=== PATIENT | male | born 1940 | race Caucasian/White ===

== ENCOUNTER 2017-01-14 20:58 | Inpatient (IN) ==
[2017-01-14] MEDS ORDERED: ALBUTEROL/IPRATROPIUM 3 ML NEB RESP TX STA (21:25)
[2017-01-14] MEDS ORDERED: methylPREDNISolone SOD SUC 125 MG/2 ML VIAL IV STA (21:25)
[2017-01-14] MEDS ORDERED: LEVOFLOXACIN INJ 750 MG in PREMIX 1 EACH IV STA (21:25)
--- NOTE | 2017-01-14 21:34 | Emergency Department Note ---
Arrival - Arrival Chief Complaint: Shortness of Breath Stated Complaint: shortness of breath ED Nursing Triage Note: Patient to room via [facility]. Patient states for the last few days he has not "felt himself". EMS states that he is having trouble breathing. Patient states that he feels like he is going to pass out. He states he is a little dizzy. Mode of Arrival: Stretcher Limitations: No Limitations Source: Patient Time Seen by Provider: 01/14/17 21:25 - History of Present Illness HPI Narrative: This 76-year-old white male presents with 3 days of progressive dyspnea at rest and on exertion associated with increased wheeze and dry cough. The patient is a chronic COPD patient on home O2 followed by Dr. Peterson in [place] and is followed by Dr. Burch for atrial fibrillation. He denies chills, fever, purulence, nausea, vomiting, history of congestive failure, or chest pain. Currently in bed at rest he is in no acute distress. Onset (ago): day(s) (Patient presents 3 days post onset of symptoms) Allergies/Adverse Reactions: Allergies Allergy/AdvReac Type Severity Reaction Status Date / Time No Known Allergies Allergy Unverified 01/14/17 21:07 Home Medications: Home Medications Medication Instructions Recorded Confirmed Type Carvedilol [Coreg] 3.125 mg PO BID 04/23/15 04/23/15 History Citalopram [CeleXA] 20 mg PO DAILY 04/23/15 04/23/15 History Febuxostat [Uloric] 40 mg PO DAILY 04/23/15 04/23/15 History Fluticasone/Salmeterol 250-50 1 puff INH BID 04/23/15 04/23/15 History [Advair 250-50] Furosemide Tab [Lasix Tab] 20 mg PO BID DIURETIC 04/23/15 04/23/15 History Solifenacin [Vesicare] 5 mg PO DAILY 04/23/15 04/23/15 History Sotalol [Betapace] 80 mg PO BID 04/23/15 04/23/15 History Review of System - Review of System 12 point system: reviewed and no additional remarkable complaints except as stated - Review of System Constitutional: Present: as per HPI Respiratory: Present: as per HPI Cardiovascular: Present: as per HPI Gastrointestinal: Present: as per HPI Medical,Surgical,& Family Hx - Medical History Cardio: History of: Cardiac Dysrhythmia (A-fib), CHF, Hypertension Endocrine: History of: Diabetes Mellitus (NIDDM) Respiratory: History of: COPD, Obstructive Sleep Apnea 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 HEENT: Normocephalic. No trauma. Moist mucous membranes. EOMI. PERRLA. ENT NML NECK: Supple. No adenopathy. CARDIAC: Regular. No murmurs. Heart rate 63 CHEST: Scattered expiratory wheezes and rhonchi. No respiratory distress. O2 sat 88% ABDOMEN: Soft. Nontender. Active bowel sounds. EXTREMITIES: No trauma. Normal ROM. Trace pedal edema. SKIN: No diaphoresis. No rash. NEURO: Alert. Neuro intact no focal deficits. Vital Signs: Vital Signs Temperature 97.8 F 01/14/17 21:00 Pulse Rate 43 L 01/14/17 21:53 Respiratory Rate 20 01/14/17 21:57 Blood Pressure 153/141 01/14/17 21:53 O2 Sat by Pulse Oximetry 96 01/14/17 21:53 Course - Reevaluation(s) Reevaluation #1: Advised patient of pneumonia and need for hospitalization. - Consultations Consultation #1: Discussed with hospitalist service who will admit for further evaluation treatment. Results - Labs CBC & BMP: 01/14/17 21:03 01/14/17 21:03 Labs: I reviewed the laboratory noted the grossly normal results - Impressions EKG: Sinus rhythm at 63 with first-degree heart block and normal QRS duration. Prolonged QT interval with nonspecific ST changes. Occasional unifocal PVCs. No acute injury pattern noted. - Diagnostic Findings Procedure: Chest x-ray: image reviewed by me, report reviewed by me (Right lower lobe infiltrate) Disposition Clinical Impression: Right lower lobe pneumonia Case discussed with: patient, patient's family Disposition: Still a Patient Condition: Stable Time of Disposition: 22:59
[2017-01-14 21:37] LABS: Basophils # 0.1 10*3/uL (0.0-0.2); Eosinophils # 0.1 10*3/uL (0.0-0.87); Hematocrit 47.5 VOL% (42.0-52.0); Hemoglobin 15.1 GM/DL (14.0-18.0); Immature Granulocytes % 0.1 %; Immature Granulocytes Absolute 0.01 #; Lymphocytes # 1.7 10*3/uL (1.4-4.0); Lymphocytes % 20.7 % (21.2-54.2); Mean Corpuscular HGB Conc 31.8 GM/DL (32-36); Mean Corpuscular Hemoglobin 31 PG (27-34); Mean Corpuscular Volume 96.7 FL (87-102); Mean Platelet Volume 11.6 FL (9.6-12.0); Monocytes # 0.9 10*3/uL (0.11-0.8); Monocytes % 10.4 % (1.7-12.7); Neutrophils # 5.6 10*3/uL (1.4-7.4); Neutrophils % 66.8 % (38.7-73.9); Platelet Count 172 T/CUMM (130-400); Red Blood Count 4.91 MC/CUMM (3.8-5.5); Red Cell Distribution Width 13.9 % (9.3-17.3); White Blood Count 8.4 T/CUMM (4-12)
[2017-01-14] MEDS ORDERED: TERBUTALINE 1 MG/1 ML VIAL SUBCUT ONE (21:38)
[2017-01-14] MEDS ORDERED: LEVOFLOXACIN INJ 150 ML IV ONE (21:38)
[2017-01-14] MEDS ORDERED: methylPREDNISolone SOD SUC 125 MG/2 ML VIAL ONE (21:38)
[2017-01-14 21:45] LABS: PT Patient Result 10.5 SECS; Partial Thromboplastin Time 28.7 SECS (0-40)
[2017-01-14] MEDS: TERBUTALINE 1 MG/1 ML VIAL SUBCUT SCH ×2 (21:47→22:35)
[2017-01-14 21:53] LABS: Alanine Aminotransferase 25 U/L (16-61); Albumin 3.6 G/DL (3.4-5.0); Alkaline Phosphatase 101 U/L (45-117); Aspartate Amino Transferase 37 U/L (0-37); Blood Urea Nitrogen 15 MG/DL (7-18); Calcium 9.4 MG/DL (8.5-10.1); Glucose 111 MG/DL (74-106); Osmolality,Calculated 278.5 MOS/KG (273-304); Potassium 4.9 MMOL/L (3.5-5.1); Sodium 139 MMOL/L (136-145); Total Protein 7.2 G/DL (6.4-8.3); Troponin I Only < 0.015 NG/ML (0.00-0.045)
[2017-01-14 22:00] LABS: Apearance,Urine CLEAR (Clear); Bilirubin,Urine Negative (Negative); Blood, Urine Negative (Negative); Glucose,Urine (UA) Negative (Negative); Ketones,Urine Negative (Negative); Nitrite,Urine Negative (Negative); Protein,Urine Negative; RBC,Urine 1 /HPF (0-4); Squamous Epithelial Cell,Urine Occasional /HPF (0-10); Urine Color Yellow (Yellow); Urine Specific Gravity 1.009 (1.001-1.035); WBC,Urine <1 /HPF (0-6)
--- NOTE | 2017-01-14 22:30 | XRay Report ---
XR chest 1V portable Indication: Shortness of breath Comparison: Chest x-ray 04/23/2015 Technique: Portable AP chest was performed. Findings: The heart is stable in size compared to prior study. [id number] ectasia of the thoracic aorta as well as diffuse intimal calcification of the aorta is stable. Pulmonary vasculature demonstrates no specific abnormality. Hilar structures demonstrate fairly symmetric appearance. The lungs suggest air space opacification in the right cardiophrenic angle. Right hemidiaphragm remains elevated. Bones and soft tissues demonstrate no evidence of acute pathology. Impression: 1. Air bronchogram formation and airspace opacification right cardiophrenic angle has different considerations including atelectasis as well as infection. 01/14/2017 10:27 PM PROCEDURE INTERPRETED AT [facility] DEPARTMENT OF RADIOLOGY Final Report Signed by: Dr. Joey No
[2017-01-14] MEDS ORDERED: ZALEPLON 5 MG CAPSULE PO PRN (23:30)
[2017-01-14] MEDS ORDERED: ONDANSETRON 4 MG/2 ML VIAL IV PRN (23:30)
[2017-01-14] MEDS ORDERED: ALBUTEROL 2.5 MG/3 ML NEB RESP TX PRN (23:30)
--- NOTE | 2017-01-14 23:45 | Hospitalist History & Physical ---
Assessment and Plan (1) Pneumonia Status: Acute Current Visit: Yes (2) Bronchitis Status: Acute Current Visit: Yes (3) Paroxysmal atrial fibrillation Status: Acute Current Visit: No (4) Essential hypertension Status: Acute Current Visit: No (5) Obstructive sleep apnea Status: Acute Assessment and plan: Plan for this patient will be admission to our service. Start him on IV antibiotics and schedule breathing treatments. Given the patient's history of A. fib will put him on a monitored bed. Reevaluate patient in the morning and adjust plans appropriate Current Visit: No History of Present Illness Chief complaint: Shortness of breath and cough History of present illness: Mr. Campbell is a 76 year old male with past medical history significant for COPD , obstructive sleep apnea, atrial fibrillation and hypertension who presents with shortness of breath 4 days. Patient feels like is going to pass out at time when he gets really short winded. He has been sweating a lot positive wheezes. He is only been coughing up spit though does not claim any sputum production Home Medications Medication Instructions Recorded Confirmed Type Carvedilol [Coreg] 3.125 mg PO BID 04/23/15 04/23/15 History Citalopram [CeleXA] 20 mg PO DAILY 04/23/15 04/23/15 History Febuxostat [Uloric] 40 mg PO DAILY 04/23/15 04/23/15 History Fluticasone/Salmeterol 250-50 1 puff INH BID 04/23/15 04/23/15 History [Advair 250-50] Furosemide Tab [Lasix Tab] 20 mg PO BID DIURETIC 04/23/15 04/23/15 History Solifenacin [Vesicare] 5 mg PO DAILY 04/23/15 04/23/15 History Sotalol [Betapace] 80 mg PO BID 04/23/15 04/23/15 History Allergies Allergy/AdvReac Type Severity Reaction Status Date / Time No Known Allergies Allergy Unverified 01/14/17 21:07 Medical,Surgical,& Family Hx - Medical History Cardio: History of: Cardiac Dysrhythmia (A-fib), CHF, Hypertension Endocrine: History of: Diabetes Mellitus (NIDDM) Respiratory: History of: COPD, Obstructive Sleep Apnea 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) - Surgical History Cardiac Surgeries: Patient Denies: Cardiac Surgery Neurologic Surgeries: Patient denies: Neurologic Surgery Orthopedic Surgeries: Surgical HX of;: Total Knee Replacement ( bilateral knee replacement) - Family History Family History: Reports;: Family Cancer (Brother, mother), Family Heart Disease , Family Hypertension (Brother), Family Stroke (Brother) - Social History Smoking Status: Never smoker Frequency of Alcohol Use: None Type of Drug Use: None 12 point system: reviewed and no additional remarkable complaints except as stated Exam - Constitutional Vitals: Period Temp Pulse Resp BP Sys/Avila Pulse Ox Last 24 Hr 97.8 F-97.8 F 43-59 18-21 146-171/79-141 87-96 General appearance: over weight - Head Head exam: Present: normal inspection - Eye Eye exam: Present: EOMI Pupils: Present: TICO - ENT ENT exam: Present: normal exam - Neck Neck exam: Present: normal inspection - Respiratory Respiratory exam: Present: rhonchi, wheezes - Cardiovascular Cardiovascular exam: Present: regular rate and rhythm - GI/Abdominal GI/Abdominal exam: Present: normal bowel sounds - Extremities Exam Extremities exam: Present: normal inspection - Back Exam Back exam: Present: normal inspection - Neurological Exam Neurological exam: Present: alert - Psychiatric Psychiatric exam: Present: normal affect - Skin Skin exam: Present: normal color Results - Labs CBC & BMP: 01/14/17 21:03 01/14/17 21:03
[2017-01-15] MEDS: ALBUTEROL/IPRATROPIUM 3 ML NEB RESP TX SCH ×4 (00:55→19:40)
[2017-01-15 03:52] LABS: Basophils % 0.5 % (0.0-0.8); Eosinophils % 0.1 % (0.00-10.9); Hematocrit 47.8 VOL% (42.0-52.0); Hemoglobin 15.3 GM/DL (14.0-18.0); Immature Granulocytes % 0.4 %; Immature Granulocytes Absolute 0.03 #; Lymphocytes # 0.8 10*3/uL (1.4-4.0); Lymphocytes % 10.1 % (21.2-54.2); Mean Corpuscular Hemoglobin 31 PG (27-34); Mean Corpuscular Volume 95.6 FL (87-102); Mean Platelet Volume 11.5 FL (9.6-12.0); Monocytes # 0.1 10*3/uL (0.11-0.8); Monocytes % 1.1 % (1.7-12.7); Neutrophils # 6.7 10*3/uL (1.4-7.4); Neutrophils % 87.8 % (38.7-73.9); Platelet Count 164 T/CUMM (130-400); Red Cell Distribution Width 13.5 % (9.3-17.3); White Blood Count 7.6 T/CUMM (4-12)
[2017-01-15 04:18] LABS: Calcium 9.5 MG/DL (8.5-10.1); Osmolality,Calculated 280.5 MOS/KG (273-304); Potassium 3.9 MMOL/L (3.5-5.1)
--- NOTE | 2017-01-15 08:40 | EKG Report ---
Stationary ECG Study [facility] ER Test Date: 01/14/2017 9:19:02 PM Pat Name: SONAL BELCHER Department: Room: 517 Gender: M [employer]: : 1940 Requested by: Demarcus Page Order Number: [id number] Reading MD: LYNETTE YAP Intervals [place] Rate: 63 P: 87 CO: 291 QRS: 47 QRSD: 104 T: 62 QT: 458 QTc: 465 Interpretive Statements SINUS RHYTHM WITH PROLONGED CO INTERVAL WITH FREQUENT VENTRICULAR PREMATURE COMPLEXES First degree AV block Electronically Signed On 01-17-17 15:31:44 CDT by LYNETTE AYP [email or web address]
[2017-01-15] MEDS: PANTOPRAZOLE 40 MG TABLET PO SCH (09:18)
--- NOTE | 2017-01-15 10:57 | Hospitalist Progress Note ---
Assessment and Plan (1) Essential hypertension Status: Acute Assessment and plan: Last blood pressure interest to quite high at 171/106. His heart rate was 57. I do not see any blood pressure medications on board. Patient will be started on amlodipine 5 mg daily; documented blood pressures twice a shift. Current Visit: No (2) Pneumonia Status: Acute Assessment and plan: Continue current antibiotics levofloxacin Current Visit: Yes (3) Bronchitis Status: Acute Assessment and plan: As above Current Visit: Yes Hospitalist: Subjective Interval history: She has been seen and interviewed and examined. His first encounter with this patient was admitted overnight by hospitalist service with reported pneumonia bronchitis paroxysmal atrial fibrillation obstructive sleep apnea. EKG does show sinus control of admission with what looks like variable [place] interval suggesting Wenckebach. There is occasional APCs noted. I wonder if this would have been "atrial fib. Does have the mitrale. no complaints at this time. Exam - Constitutional Vitals: Period Temp Pulse Resp BP Sys/Avila Pulse Ox Last 24 Hr 97.8 F-97.8 F 43-66 14-21 146-171/79-141 87-99 General appearance: morbidly obese - Head Head exam: Present: normal inspection - Eye Eye exam: Present: EOMI Pupils: Present: TICO - ENT ENT exam: Present: normal exam, normal oropharynx - Neck Neck exam: Present: normal inspection - Respiratory Respiratory exam: Present: clear to auscultation bilaterally - Cardiovascular Cardiovascular exam: Present: irregular rhythm - GI/Abdominal GI/Abdominal exam: Present: normal bowel sounds - Extremities Exam Extremities exam: Present: normal inspection, full ROM, other - Back Exam Back exam: Present: normal inspection - Neurological Exam Neurological exam: Present: alert, oriented X3, CN II-XII intact - Psychiatric Psychiatric exam: Present: normal affect, normal mood - Skin Skin exam: Present: normal color, warm, dry Results - Labs CBC & BMP: 01/15/17 02:46 01/15/17 02:46 Lab Results: I have reviewed the past 24 hour labs Quality Measures - Stroke Symptom Onset Unknown: No
[2017-01-15] MEDS: amLODIPine 5 MG TABLET PO SCH (11:09)
[2017-01-15] MEDS: LEVOFLOXACIN INJ 750 MG in PREMIX 1 EACH IV SCH (20:53)
[2017-01-16] MEDS: ALBUTEROL/IPRATROPIUM 3 ML NEB RESP TX SCH ×4 (00:38→20:27)
--- NOTE | 2017-01-16 07:15 | Hospitalist Progress Note ---
Assessment and Plan - Time spent with patient Time spent with patient: Less than 30 minutes (1) Pneumonia Status: Acute Assessment and plan: Patient was admitted and is being treated for probable bacterial pneumonia. He remains afebrile and is clinically improving. His oxygenation on 2 L is okay. We will continue O2, pulmonary toilet, antibiotics. Will check O2 saturations on room air and consider discharge within the next 24 hours. Current Visit: Yes (2) Essential hypertension Status: Chronic Assessment and plan: Patient has chronic essential hypertension which currently well controlled on current medical regimen. Current Visit: No (3) Obstructive sleep apnea Status: Chronic Assessment and plan: Patient has a history of obstructive sleep apnea. Continue current therapy. Current Visit: No (4) Diabetes mellitus Status: Chronic Assessment and plan: Patient denies a history of diabetes. His blood sugars have been elevated and it is presumed he is been treated for type 2 diabetes mellitus with dietary measures only. Will continue current therapy and monitor. Current Visit: No Qualifiers: Diabetes mellitus type: type 2 Hospitalist: Subjective Interval history: Chart reviewed and patient examined. Mr. Campbell is a poor historian. He states that he slept 6 hours last night which is the most he slept in several months. He denies any shortness of breath or cough. His appetite is good. He denies any nausea, vomiting, chest pain. Exam - Constitutional Vitals: Period Temp Pulse Resp BP Sys/Avila Pulse Ox Last 24 Hr 97.8 F-98.8 F 48-71 16-20 130-144/63-97 90-99 General appearance: no acute distress - Head Head exam: Present: normocephalic, atraumatic - Eye Eye exam: Present: EOMI Pupils: Present: TICO - ENT ENT exam: Present: normal exam - Neck Neck exam: Present: normal inspection. Absent: lymphadenopathy - Respiratory Respiratory exam: Present: clear to auscultation bilaterally. Absent: rales, rhonchi, stridor, wheezes - Cardiovascular Cardiovascular exam: Present: regular rate and rhythm. Absent: systolic murmur , tachycardia - GI/Abdominal GI/Abdominal exam: Present: normal bowel sounds, soft. Absent: mass, tenderness , rebound - Extremities Exam Extremities exam: Present: normal capillary refill. Absent: calf tenderness, edema - Back Exam Back exam: Present: normal inspection - Neurological Exam Neurological exam: Present: alert, oriented X3, CN II-XII intact. Absent: motor sensory deficit - Psychiatric Psychiatric exam: Present: normal affect, normal mood. Absent: agitated, anxious - Skin Skin exam: Present: warm, dry. Absent: erythema, rash Results - Labs CBC & BMP: 01/15/17 02:46 01/15/17 02:46 Lab Results: I have reviewed the past 24 hour labs Quality Measures - Stroke Symptom Onset Unknown: No
[2017-01-16] MEDS: SOTALOL 80 MG TABLET PO SCH ×2 (09:50→20:08)
[2017-01-16] MEDS: SOLIFENACIN 5 MG TABLET PO SCH (09:50)
[2017-01-16] MEDS: CITALOPRAM 20 MG TABLET PO SCH (09:50)
[2017-01-16] MEDS: ASPIRIN EC 81 MG TABLET PO SCH (09:51)
[2017-01-16] MEDS: amLODIPine 5 MG TABLET PO SCH (09:51)
[2017-01-16] MEDS: CETIRIZINE 10 MG TABLET PO SCH (09:51)
[2017-01-16] MEDS: PANTOPRAZOLE 40 MG TABLET PO SCH (09:51)
[2017-01-16] MEDS: FUROSEMIDE 20 MG TABLET PO SCH ×2 (09:55→17:04)
[2017-01-16] MEDS: ATORVASTATIN 40 MG TABLET PO SCH (09:55)
[2017-01-16] MEDS: CARVEDILOL 3.125 MG TABLET PO SCH ×2 (09:55→17:03)
[2017-01-16] MEDS: FLUTICASONE/SALMETEROL 250-50 DISKUS 14 DOSE INH SCH ×2 (09:55→20:08)
[2017-01-16] MEDS: ACETAMINOPHEN 325 MG TABLET PO PRN ×2 (17:07→22:54)
--- NOTE | 2017-01-16 19:19 | XRay Report ---
History: Pneumonia Date: 01/16/2017 Study: Chest x-ray PA and lateral Comparison exam: Portable chest x-ray January 14, 2017 The cardiac silhouette is upper normal in size. There is no mediastinal mass. The pulmonary vasculature is not engorged. There is no pleural effusion. There is mild platelike subsegmental atelectasis in the right lung base with mild elevation of the right hemidiaphragm, similar to the previous study. The left lung is clear. There is improved aeration of the left base on the current exam. Osseous structures are similar. Impression: Continued right basilar atelectasis. Improved aeration in the left lung base in the interval PROCEDURE INTERPRETED AT [facility] DEPARTMENT OF RADIOLOGY Final Report Signed by: Dr. Marlys Mark
[2017-01-16] MEDS: LEVOFLOXACIN INJ 750 MG in PREMIX 1 EACH IV SCH (20:13)
[2017-01-16] MEDS ORDERED: DONEPEZIL 10 MG TABLET PO SCH (21:00)
[2017-01-17] MEDS: ALBUTEROL/IPRATROPIUM 3 ML NEB RESP TX SCH ×2 (07:48)
[2017-01-17] MEDS: SOTALOL 80 MG TABLET PO SCH (08:49)
[2017-01-17] MEDS: ASPIRIN EC 81 MG TABLET PO SCH (08:49)
[2017-01-17] MEDS: amLODIPine 5 MG TABLET PO SCH (08:49)
[2017-01-17] MEDS: SOLIFENACIN 5 MG TABLET PO SCH (08:49)
[2017-01-17] MEDS: CITALOPRAM 20 MG TABLET PO SCH (08:49)
[2017-01-17] MEDS: ATORVASTATIN 40 MG TABLET PO SCH (08:50)
[2017-01-17] MEDS: FUROSEMIDE 20 MG TABLET PO SCH (08:50)
[2017-01-17] MEDS: CETIRIZINE 10 MG TABLET PO SCH (08:50)
[2017-01-17] MEDS: CARVEDILOL 3.125 MG TABLET PO SCH (08:50)
[2017-01-17] MEDS: PANTOPRAZOLE 40 MG TABLET PO SCH (08:50)
--- NOTE | 2017-01-17 09:09 | Hospitalist Progress Note ---
Assessment and Plan - Time spent with patient Time spent with patient: Less than 30 minutes (1) Pneumonia Status: Acute Assessment and plan: Patient was admitted and is being treated for probable bacterial pneumonia. He remains afebrile and is clinically improving. His oxygenation on 2 L is okay. We will continue O2, pulmonary toilet, antibiotics. Will check O2 saturations on room air and consider discharge within the next 24 hours. 01/17/17: Patient continues to improve and remains afebrile. request pulmonary evaluation prior to discharge. Will consult pulmonary and hopefully plan on discharging later today or in a.m. on home O2 therapy. Current Visit: Yes (2) Essential hypertension Status: Chronic Assessment and plan: Patient has chronic essential hypertension which currently well controlled on current medical regimen. Current Visit: No (3) Obstructive sleep apnea Status: Chronic Assessment and plan: Patient has a history of obstructive sleep apnea. Continue current therapy. Current Visit: No (4) Diabetes mellitus Status: Chronic Assessment and plan: Patient denies a history of diabetes. His blood sugars have been elevated and it is presumed he is been treated for type 2 diabetes mellitus with dietary measures only. Will continue current therapy and monitor. Current Visit: No Qualifiers: Diabetes mellitus type: type 2 Hospitalist: Subjective Interval history: Patient is in the bed without any complaints he is currently not wearing his oxygen. Does have some shortness of breath and notes that his oxygen saturation does drop into the 80s when he is off his O2 and with exertion. He states he does continue wear CPAP at night for his obstructive sleep apnea and has oxygen at home which he uses on a as needed basis. His states that she wants him checked out by pulmonary prior to discharge. He has seen Dr. Sharma in the office on 1 or 2 occasions. Exam - Constitutional Vitals: Period Temp Pulse Resp BP Sys/Avila Pulse Ox Last 24 Hr 97.1 F-98.9 F 54-75 16-20 135-150/56-90 80-98 General appearance: no acute distress - Head Head exam: Present: normocephalic, atraumatic - Eye Eye exam: Present: EOMI Pupils: Present: TICO - ENT ENT exam: Present: normal exam - Neck Neck exam: Present: normal inspection - Respiratory Respiratory exam: Present: clear to auscultation bilaterally, decreased breath sounds. Absent: rales, rhonchi, wheezes - Cardiovascular Cardiovascular exam: Present: regular rate and rhythm - GI/Abdominal GI/Abdominal exam: Present: normal bowel sounds, soft. Absent: mass, tenderness , rebound - Extremities Exam Extremities exam: Absent: calf tenderness, edema - Back Exam Back exam: Present: normal inspection - Neurological Exam Neurological exam: Present: alert, oriented X3, CN II-XII intact. Absent: motor sensory deficit - Psychiatric Psychiatric exam: Present: normal affect, normal mood - Skin Skin exam: Present: warm, dry. Absent: rash Results - Labs CBC & BMP: 01/15/17 02:46 01/15/17 02:46 - Diagnostic Findings Procedure: Chest x-ray: report reviewed by me Quality Measures - Stroke Symptom Onset Unknown: No
[2017-01-17 09:44] LABS: ABG Base Excess 4.7 MMOL/L (-2.5-2.5); ABG HCO3 28.4 MMOL/L (20-26); ABG Oxygen Saturation 88.9 % (95-100); ABG PCO2 53.9 MM HG (35-48); ABG PH 7.377 (7.35-7.45); ABG PO2 57.1 MM HG (80-95); ABG TCO2 27.1 MMOL/L (23-27)
[2017-01-17] MEDS ORDERED: LEVOFLOXACIN 750 MG TABLET PO SCH (10:00)
--- NOTE | 2017-01-17 11:07 | Pulmonology Consult Note ---
Assessment and Plan (1) Obstructive sleep apnea Status: Chronic Assessment and plan: Stable. Cont on CPAP at night Current Visit: No (2) Pneumonia Status: Acute Assessment and plan: Possible small RLL infiltrate. On appropriate therapy and improving so would finish course of antibiotics. His exertional dyspnea sounds like its more due to deconditioning. Given his nonsmoking status and no exposure history, it is unlikely that he actually has COPD. However I would recommend that he follow up with Dr Sharma in clinic to get PFTs if this has in fact not been done and rule it out. Additionally, he needs a formal 6MW and desat study with clearer parameters on oxygen use. This can also be accomplished as an outpatient. He would likely benefit from a monitored exercise program to improve his endurance. His elevated hemidiaphragm may also becoming symptomatic if he has had notable weight gain in the last year or so. Overall, patient is appropriate for discharge with outpatient pulmonary followup Current Visit: Yes History of Present Illness Chief complaint: shortness of breath History of present illness: Mr. Campbell is a 76 year old male who was admitted a few days ago for pneumonia. He had reported increasing dyspnea on exertion without significant cough or sputum production. CXR suggested a possible RLL infiltrate and he was started on antibiotics. He is feeling much better now. His was concerned and requested a pulmonary evaluation. Patient has seen Dr Sharma in clinic previously, however he does not remember every doing PFTs. He is a life long nonsmoker and has no unusual exposures. He has PAT and uses CPAP at night without problems. He has home oxygen which he thinks he was started on by cardiology a while ago after a stroke. He uses it intermittently when he feels like he needs it. He does note increasing fatigue with exertion and decreased exercise tolerance. Home Medications Medication Instructions Recorded Confirmed Type Carvedilol [Coreg] 3.125 mg PO BID 04/23/15 01/15/17 History Citalopram [CeleXA] 20 mg PO DAILY 04/23/15 01/15/17 History Fluticasone/Salmeterol 250-50 1 puff INH BID 04/23/15 01/15/17 History [Advair 250-50] Furosemide Tab [Lasix Tab] 20 mg PO BID DIURETIC 04/23/15 01/15/17 History Solifenacin [Vesicare] 5 mg PO DAILY 04/23/15 01/15/17 History Sotalol [Betapace] 80 mg PO BID 04/23/15 01/15/17 History Aspirin [Aspirin EC] 81 mg PO DAILY 01/15/17 01/15/17 History Atorvastatin Calcium 40 mg PO PC BREAKFAST 01/15/17 01/16/17 History Donepezil HCl 10 mg PO BEDTIME 01/15/17 01/15/17 History Levocetirizine Dihydrochloride 5 mg PO DAILY 01/15/17 01/15/17 History Allergies Allergy/AdvReac Type Severity Reaction Status Date / Time No Known Allergies Allergy Unverified 01/14/17 21:07 12 point system: reviewed and no additional remarkable complaints except as stated Exam (Pulmonay) H&P - Constitutional Vitals: Period Temp Pulse Resp BP Sys/Avila Pulse Ox Last 24 Hr 97.1 F-98.9 F 54-75 16-20 135-150/56-90 87-98 General appearance: over weight - Head Head exam: Present: normal inspection - Eye Eye exam: Present: EOMI - ENT ENT exam: Present: normal exam - Respiratory Respiratory exam: Present: clear to auscultation bilaterally - Cardiovascular Cardiovascular exam: Present: regular rate and rhythm - GI/Abdominal GI/Abdominal exam: Present: normal bowel sounds - Extremities Exam Extremities exam: Present: normal inspection - Neurological Exam Neurological exam: Present: alert, oriented X3 - Psychiatric Psychiatric exam: Present: normal affect, normal mood - Skin Skin exam: Present: normal color, warm Medical,Surgical,& Family Hx - Medical History Cardio: History of: Cardiac Dysrhythmia (A-fib), CHF, Hypertension Endocrine: History of: Diabetes Mellitus (NIDDM) Respiratory: History of: Obstructive Sleep Apnea No history of: COPD 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) - Surgical History Cardiac Surgeries: Patient Denies: Cardiac Surgery Neurologic Surgeries: Patient denies: Neurologic Surgery Orthopedic Surgeries: Surgical HX of;: Total Knee Replacement ( bilateral knee replacement) - Family History Family History: Reports;: Family Cancer (Brother, mother), Family Heart Disease , Family Hypertension (Brother), Family Stroke (Brother) - Social History Smoking Status: Never smoker Frequency of Alcohol Use: None Type of Drug Use: None Results - Labs CBC & BMP: 01/15/17 02:46 01/15/17 02:46 Lab Results: I have reviewed the past 24 hour labs - Diagnostic Findings Procedure: Chest x-ray: image reviewed by me, report reviewed by me (elevated right hemidiaphragm) Quality Measures - Stroke Symptom Onset Unknown: No
[2017-01-17] MEDS: FLUTICASONE/SALMETEROL 250-50 DISKUS 14 DOSE INH SCH (11:24)
--- NOTE | 2017-01-17 11:29 | Discharge Summary ---
Hospital Course - Hospital Course Hospital Course: Mr. Campbell is a 76-year-old white male with history of obstructive sleep apnea, atrial fibrillation, hypertension who presented with 4 day history of shortness of breath. He had been sweating a lot and having wheezing. He been coughing up spit although not claiming any sputum production. He was evaluated and felt to have a right lower lobe community-acquired pneumonia requiring admission. He was cultured and placed on empiric IV antibiotics, O2, nebulizer therapy. He continued to improve symptomatically. He remained afebrile his chest x-ray did so some improvement. He was seen by pulmonary at the 's request. Dr. Samuels felt that the patient was appropriate for discharge with outpatient pulmonary follow-up including outpatient PFTs if not previously done. He may also improved from a monitored exercise program to improve his endurance. We will complete his current therapy for his community acquired pneumonia. - Time spent with patient Time with patient DS: Greater than 30 minutes Diagnosis - Discharge Diagnosis (1) Pneumonia Status: Acute (2) Essential hypertension Status: Chronic (3) Obstructive sleep apnea Status: Chronic (4) Diabetes mellitus Status: Chronic Discharge Plan - Discharge Data Disposition: Disch To Home/Self Care Condition at Discharge: Stable Discharge Diet: diabetic diet Activity: wear oxygen at all times Contact your physician if you experience:: fever over 101, Shortness of breath - Discharge Medications New amLODIPine [Norvasc] 5 mg PO DAILY #30 tablet Albuterol Inhaler [Proventil Inhaler] 2 puff INH Q4H PRN #1 inhaler PRN Reason: Shortness Of Breath/Wheezing Levofloxacin Tab [Levaquin Tab] 750 mg PO DAILY #7 tablet Continue Carvedilol [Coreg] 3.125 mg PO BID Furosemide Tab [Lasix Tab] 20 mg PO BID DIURETIC Fluticasone/Salmeterol 250-50 [Advair 250-50] 1 puff INH BID Sotalol [Betapace] 80 mg PO BID Solifenacin [Vesicare] 5 mg PO DAILY Citalopram [CeleXA] 20 mg PO DAILY Aspirin [Aspirin EC] 81 mg PO DAILY Atorvastatin Calcium 40 mg PO PC BREAKFAST Levocetirizine Dihydrochloride 5 mg PO DAILY Donepezil HCl 10 mg PO BEDTIME - Follow Up or Referral Follow Up: Mike Sharma MD [Physician] - 2 Weeks PCP, Clinic [Other] - 5 Days - Forms/Instructions Exam - Constitutional Vitals: Period Temp Pulse Resp BP Sys/Avila Pulse Ox Last 24 Hr 97.1 F-98.9 F 54-75 16-20 135-150/56-90 87-98 General appearance: no acute distress - Head Head exam: Present: normocephalic, atraumatic - Eye Eye exam: Present: EOMI Pupils: Present: TICO - ENT ENT exam: Present: normal exam - Neck Neck exam: Present: normal inspection - Respiratory Respiratory exam: Present: clear to auscultation bilaterally. Absent: rales, rhonchi, wheezes - Cardiovascular Cardiovascular exam: Present: regular rate and rhythm - GI/Abdominal GI/Abdominal exam: Present: normal bowel sounds, soft. Absent: mass, tenderness , rebound - Extremities Exam Extremities exam: Absent: calf tenderness, edema - Back Exam Back exam: Present: normal inspection - Neurological Exam Neurological exam: Present: alert, oriented X3, CN II-XII intact. Absent: motor sensory deficit - Psychiatric Psychiatric exam: Present: normal affect, normal mood. Absent: agitated, anxious - Skin Skin exam: Present: warm, dry. Absent: erythema Discharge Results Procedures and tests throughout hospitalization: Pending Orders 01/14/17 21:30 Blood Culture Stat Labs on day of discharge: Labs from last 24 hours 01/17/17 09:10 ABG pH 7.377 ABG pCO2 53.9 H ABG pO2 57.1 L ABG HCO3 28.4 H ABG Total CO2 27.1 H ABG O2 Saturation 88.9 L ABG Base Excess 4.7 H Preliminary micro results at discharge 01/14/17 21:30 Blood Culture - Preliminary Blood No growth at 1 day 01/14/17 21:30 Blood Culture - Preliminary Blood No growth at 1 day - Imaging and Cardiology Procedure: Chest x-ray: report reviewed by me DS: Provider Date of admission: 01/14/17 23:16 Primary care physician: Deep Rosado Attending physician on admission: Bismark Ennis MD Consults: 01/17/17 09:05 Consult to Physician [CONS] Routine Comment: Consulting Provider: Maylin Wood Person Notified: Dr Wood Date Notified: 01/17/17 Time Notified: 10:33 Consult Notification Comment: left message on voicemail at [phone] Discharging clinician: Inocencio Murray Expected date of discharge: 01/17/17
[2017-01-17 12:15] VITALS: BP 134/66
--- NOTE | 2017-01-25 08:00 | Physician Query Form ---
CLICK EDIT DOCUMENT TO SELECT QUERY ANSWER --> OK --> SIGN Lila Bravo RN [employer] W) [phone] (f) [phone] [email or web address]: Make your selection(s) from the choices in EACH section by typing an "x" and enter comments in the comment section. Please use your independent medical judgment in providing your response. This request does not imply that any particular answer is desired or expected. CLINICAL INDICATORS: (Providers should not edit this section) Based on documentation of "history of CHF", BNP=75, Echo done 03/29/14 showed EF of 55% with Grade I/IV diastolic dysfunction. No recent echo available. Pt. treated with PO Lasix as home medication. Please provide further specificity regarding CHF. TYPE: ( ) Systolic (HFrEF - heart failure with reduced systolic function/EF) (x ) Diastolic (HFpEF - heart failure with preserved systolic function/EF) ( ) Combined Systolic/Diastolic ( ) Other, please specify: ( ) Clinically unable to determine ( ) The patient does NOT have CHF COMMENTS: PLEASE ALSO DOCUMENT RESPONSE IN PROGRESS NOTES AND/OR DISCHARGE SUMMARY Use of terms such as suspected, likely, or probable (associated with a specific diagnosis that is being evaluated, monitored, or treated as if it exists) are acceptable and can be restated in the discharge summary if not ruled out. MTDD
== END 2017-01-17 13:30 | disposition home or self-care (01) | DRG 194 ==
LOC: EDUNIT# → EDBD → N.ED 20:58 → SUATTDRO 23:16 → N.EDINP 23:16 → N.5E 23:56
PROVIDERS: ADMIT Internal Medicine; ATTEND Hospitalist